=== PATIENT | female | born 1960 | race Caucasian/White ===

== ENCOUNTER 2024-02-09 08:06 | Day surgery (SDC) | payer OTHER ==
[~2024-02-09] VITALS: Ht 127 cm; Wt 74.8 kg
[2024-02-09] MEDS ORDERED: fentaNYL citrate 0.05 MG/ML VIAL ONE (09:07)
[2024-02-09] MEDS: fentaNYL citrate 0.05 MG/ML VIAL IVP ONE (09:27)
[2024-02-09] MEDS: LIDOCAINE 2% 100 MG/5 ML UJET TP ONE (09:34)
== END 2024-02-09 10:32 | disposition home or self-care (01) ==
LOC: MDS 08:06 → MMU 08:07 → MDS 10:32
PROVIDERS: ATTEND Internal Medicine Gastroenterology
DX: Z12.11 Encounter for screening for malignant neoplasm of colon (principal); K63.5 Polyp of colon; K57.30 Diverticulosis of large intestine without perforation or abscess without bleeding; R10.13 Epigastric pain; I10 Essential (primary) hypertension; E78.00 Pure hypercholesterolemia, unspecified; M81.0 Age-related osteoporosis without current pathological fracture; B96.81 Helicobacter pylori [H. pylori] as the cause of diseases classified elsewhere; Z90.710 Acquired absence of both cervix and uterus; Z79.899 Other long term (current) drug therapy; Z98.890 Other specified postprocedural states
CPT/HCPCS: 45385; J3010